=== PATIENT | female | born 1995 | race Caucasian/White ===

== ENCOUNTER → 2024-10-25 | Outpatient (CLI) | payer OTHER | END | disposition home or self-care (01) | LOC: US 08:30 | PROVIDERS: ATTEND Family Medicine | DX: R10.9 Unspecified abdominal pain (principal); R11.2 Nausea with vomiting, unspecified; D64.9 Anemia, unspecified ==

== ENCOUNTER → 2024-11-05 | Outpatient (CLI) | payer OTHER ==
[~2024-11-05] MED LIST: SINCALIDE 1.72 MCG in SODIUM CHLORIDE 0.9% 50 ML IV STA; Technetium Tc 99M Mebrofenin 1 KIT KIT IV SCH
== END | disposition home or self-care (01) ==
LOC: NM 03:38
PROVIDERS: ATTEND Family Medicine
DX: R10.84 Generalized abdominal pain (principal)

== ENCOUNTER → 2025-06-04 | Outpatient (CLI) | payer OTHER ==
[2025-06-04 10:47] LABS: MEAN CELL VOLUME 96.9 fl (81.0-99.0); MEAN CORPUSCULAR HGB 30.6 pg (27.0-31.0); MEAN PLATELET VOLUME 9.2 fl (9.6-12.3); NUCLEATED RED BLOOD CELL 0.0 % (0.0-0.0); NUCLEATED RED BLOOD CELL 0.0 10*3/uL (0.0-0.0); PLATELET COUNT AUTOMATED 319.0 10*3/uL (130-400); RED CELL DISTRI WIDTH 12.8 % (0-14.5)
[2025-06-04 11:17] LABS: BUN 9 mg/dl (9-23); FREE T4 1.45 ng/dl (0.89-1.76); LDL CHOLESTEROL 107 mg/dL (9-159); SGPT/ALT 14 U/L (5-49)
== END | disposition home or self-care (01) ==
LOC: LAB 10:23
PROVIDERS: ATTEND Family Medicine
DX: E03.9 Hypothyroidism, unspecified (principal); K21.9 Gastro-esophageal reflux disease without esophagitis; R53.83 Other fatigue; D64.9 Anemia, unspecified

== ENCOUNTER → 2025-07-29 | Outpatient (CLI) | payer OTHER | END | disposition home or self-care (01) | LOC: RAD 15:35 | PROVIDERS: ATTEND Family Medicine | DX: M25.561 Pain in right knee (principal); M25.50 Pain in unspecified joint ==